=== PATIENT | male | born 1965 | race Caucasian/White ===

== ENCOUNTER 2016-08-10 19:09 | Emergency (ER) | payer OTHER ==
[~2016-08-10] VITALS: Ht 190.5 cm; Wt 120.4 kg
[~2016-08-10 19:09] MED LIST: LISI-461 PO; NXM/40 PO
[2016-08-10 19:12] VITALS: Ht 190.5 cm; Wt 120.4 kg
--- NOTE | 2016-08-10 20:19 | DIAGNOSTIC IMAGING REPORT ---
CHEST ONE VIEW PORTABLE CLINICAL HISTORY: severe hypertension chest pain COMPARISON STUDY: No previous studies for comparison. FINDINGS: The bones soft tissues and hemidiaphragms are normal. The cardiomediastinal silhouette is normal. The lungs are clear. The pulmonary vasculature is normal. IMPRESSION: Negative chest. Electronically signed by: Chas Sheriff M.D. 08/10/2016 8:16 PM Dictated Date/Time: 08/10/2016 8:16 PM
[2016-08-10] MEDS ORDERED: ATOR-22 PO (20:21)
[2016-08-10] MEDS ORDERED: LISI-725 PO (20:21)
[2016-08-10] MEDS ORDERED: PANT40TA PO (20:21)
[2016-08-10 20:46] LABS: BASO % 0.3 %; BASO ABS # 0.02 K/uL (0-0.2); COMPLETE YES; EOS % 2.6 %; HEMATOCRIT 44.4 % (42-52); IG% 0.1 %; LYMPH % 33.6 %; LYMPH ABS # 2.37 K/uL (1.2-3.4); MEAN CELL VOLUME 86.4 fL (80-100); MEAN CORPUSCULAR HEMOGLOBIN 30.4 pg (25-34); MEAN CORPUSCULAR HGB CONC 35.1 g/dl (32-36); MEAN PLATELET VOLUME 9.7 fL (7.4-10.4); NEUT % 56.4 %; PLATELET COUNT 315 K/uL (130-400); RED BLOOD COUNT 5.14 M/uL (4.7-6.1); WHITE BLOOD COUNT 7.05 K/uL (4.8-10.8)
[2016-08-10 20:54] LABS: PROTHROMBIN TIME (PATIENT) 10.8 SECONDS (9.0-12.0)
--- NOTE | 2016-08-10 21:08 | DIAGNOSTIC IMAGING REPORT ---
HEAD CT NONCONTRAST CT DOSE: 687.98 mGy.cm HISTORY: Mental status change dizziness, hypertension TECHNIQUE: Multiaxial CT images of the head were performed without the use of intravenous contrast. Comparison: None. Findings: Mild mucosal thickening inferior right maxillary sinus. Sinuses otherwise are clear. The mastoids are clear. The calvarium and skull base are intact. The ventricles and sulci are within normal limits. There is no mass, hematoma, midline shift, or acute infarct. Impression: No acute intracranial abnormality. Electronically signed by: Chas Sheriff M.D. 08/10/2016 9:06 PM Dictated Date/Time: 08/10/2016 9:05 PM
[2016-08-10 21:17] VITALS: O2SAT 95
[2016-08-10 21:17] LABS: ALKALINE PHOSPHATASE 108 U/L (45-117); ALT/SGPT 43 U/L (12-78); AST/SGOT 23 U/L (15-37); BLOOD UREA NITROGEN 13 mg/dl (7-18); BUN/CREATININE RATIO 13.4 (10-20); CARBON DIOXIDE 25 mmol/L (21-32); CHLORIDE 108 mmol/L (98-107); CREATININE 0.94 mg/dl (0.60-1.40); GLUCOSE 88 mg/dl (70-99); POTASSIUM 4.1 mmol/L (3.5-5.1); SODIUM 142 mmol/L (136-145)
[2016-08-10 23:01] VITALS: BP 148/93; PULSE 57; TEMP 36.7; O2SAT 96
--- NOTE | 2016-08-11 00:09 | EMERGENCY ROOM VISIT NOTE ---
History Report prepared by Ameya: Ayaan Monge Under the Supervision of: Dr. Angelo Rowe M.D. First contact with patient: 19:52 Chief Complaint: HYPERTENSION Stated Complaint: DIZZY, HIGH BP TINGLY LEFT ARM History of Present Illness The patient is a 51 year old male who presents to the Emergency Room with complaints of sudden hypertension beginning two and a half hours prior to arrival. He associates lightheadedness, intermittent palpitations, and resolved dizziness with today's symptoms. The patient notes he began to feel palpitations and felt like the room was spinning. He states his sister took his blood pressure, and it was high. The patient notes he has a history of hypertension and denies missing any doses of his medication. He states he has not been getting much rest over the past several weeks due to an online math course. The patient notes heart disease runs in his family. Pt denies LOC, headache, fevers, chills, diaphoresis, visual changes, neck pain, chest pain, breathing difficulties, nausea, vomiting, abdominal pain, back pain, leg pain, melena, hematochezia, urinary symptoms, numbness, weakness, lymphadenopathy, rash, or other complaints. 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 A total of ten systems were reviewed and were otherwise negative. Past Medical & Surgical Medical Problems: (1) GERD (gastroesophageal reflux disease) (2) Hypertension Surgical Problems: (1) S/P cholecystectomy Family History Cancer Heart disease Lung disease Social History Smoking Status: Never Smoker Marital Status: Occupation Status: employed Current/Historical Medications Scheduled Atorvastatin (Lipitor), 20 MG PO DAILY Lisinopril (Zestril), 20 MG PO DAILY Pantoprazole (Protonix), 40 MG PO DAILY Allergies Coded Allergies: No Known Allergies (Unverified , 12/06/09) Physical Exam Vital Signs Date Time Temp Pulse Resp B/P Pulse Ox O2 Delivery O2 Flow Rate FiO2 08/10/16 23:01 36.7 57 18 148/93 96 08/10/16 22:38 57 18 148/93 96 Room Air 08/10/16 21:21 65 08/10/16 21:17 Room Air 08/10/16 21:17 95 Room Air 08/10/16 20:33 59 18 154/102 94 Room Air 65 174/115 69 161/114 08/10/16 19:12 36.7 87 20 184/110 95 Room Air Physical Exam GENERAL: Awake, alert, well-appearing, in no distress HENT: Normocephalic, atraumatic. Oropharynx unremarkable. EYES: Normal conjunctiva. Sclera non-icteric. NECK: Supple. No nuchal rigidity. FROM. No JVD. RESPIRATORY: Clear to auscultation. CARDIAC: Regular rate, normal rhythm. Extremities warm and well perfused. Pulses equal. ABDOMEN: Soft, non-distended. No tenderness to palpation. No rebound or guarding. No masses. RECTAL: Deferred. MUSCULOSKELETAL: Chest examination reveals no tenderness. The back is symmetrical on inspection without obvious abnormality. There is no CVA tenderness to palpation. No joint edema. LOWER EXTREMITIES: Calves are equal size bilaterally and non-tender. No edema. No discoloration. NEURO: Normal sensorium. No sensory or motor deficits noted. SKIN: No rash or jaundice noted. Medical Decision & Procedures ER Provider Diagnostic Interpretation: X ray results as stated below per my interpretation and radiologist interpretation. Other radiology results as stated below per my review and radiologist interpretation CHEST ONE VIEW PORTABLE CLINICAL HISTORY: severe hypertension chest pain COMPARISON STUDY: No previous studies for comparison. FINDINGS: The bones soft tissues and hemidiaphragms are normal. The cardiomediastinal silhouette is normal. The lungs are clear. The pulmonary vasculature is normal. IMPRESSION: Negative chest. Electronically signed by: Chas Sheriff M.D. 08/10/2016 8:[address] CT DOSE: 687.98 mGy.cm HISTORY: Mental status change dizziness, hypertension TECHNIQUE: Multiaxial CT images of the head were performed without the use of intravenous contrast. Comparison: None. Findings: Mild mucosal thickening inferior right maxillary sinus. Sinuses otherwise are clear. The mastoids are clear. The calvarium and skull base are intact. The ventricles and sulci are within normal limits. There is no mass, hematoma, midline shift, or acute infarct. Impression: No acute intracranial abnormality. Electronically signed by: Chas Sheriff M.D. 08/10/2016 9:06 PM Laboratory Results 08/10/16 20:15 Red Blood Count 5.14, Mean Corpuscular Volume 86.4, Mean Corpuscular Hemoglobin 30.4, Mean Corpuscular Hemoglobin Concent 35.1, Mean Platelet Volume 9.7, Neutrophils (%) (Auto) 56.4, Lymphocytes (%) (Auto) 33.6, Monocytes (%) (Auto) 7.0, Eosinophils (%) (Auto) 2.6, Basophils (%) (Auto) 0.3, Neutrophils # (Auto) 3.98, Lymphocytes # (Auto) 2.37, Monocytes # (Auto) 0.49, Eosinophils # (Auto) 0.18, Basophils # (Auto) 0.02 08/10/16 20:15 Test 08/10/16 20:15 White Blood Count 7.05 K/uL (4.8-10.8) Red Blood Count 5.14 M/uL (4.7-6.1) Hemoglobin 15.6 g/dL (14.0-18.0) Hematocrit 44.4 % (42-52) Mean Corpuscular Volume 86.4 fL (80-100) Mean Corpuscular Hemoglobin 30.4 pg (25-34) Mean Corpuscular Hemoglobin Concent 35.1 g/dl (32-36) Platelet Count 315 K/uL (130-400) Mean Platelet Volume 9.7 fL (7.4-10.4) Neutrophils (%) (Auto) 56.4 % Lymphocytes (%) (Auto) 33.6 % Monocytes (%) (Auto) 7.0 % Eosinophils (%) (Auto) 2.6 % Basophils (%) (Auto) 0.3 % Neutrophils # (Auto) 3.98 K/uL (1.4-6.5) Lymphocytes # (Auto) 2.37 K/uL (1.2-3.4) Monocytes # (Auto) 0.49 K/uL (0.11-0.59) Eosinophils # (Auto) 0.18 K/uL (0-0.5) Basophils # (Auto) 0.02 K/uL (0-0.2) RDW Standard Deviation 43.5 fL (36.4-46.3) RDW Coefficient of Variation 13.7 % (11.5-14.5) Immature Granulocyte % (Auto) 0.1 % Immature Granulocyte # (Auto) 0.01 K/uL (0.00-0.02) Prothrombin Time 10.8 SECONDS (9.0-12.0) Prothromb Time International Ratio 1.0 (0.9-1.1) Activated Partial Thromboplast Time 24.7 SECONDS (21.0-31.0) Partial Thromboplastin Ratio 1.0 Anion Gap 9.0 mmol/L (3-11) Est Creatinine Clear Calc Drug Dose 128.5 ml/min Estimated GFR () 107.6 Estimated GFR (Non- 92.8 BUN/Creatinine Ratio 13.4 (10-20) Calcium Level 9.0 mg/dl (8.5-10.1) Total Bilirubin 0.6 mg/dl (0.2-1) Direct Bilirubin 0.2 mg/dl (0-0.2) Aspartate Amino Transf (AST/SGOT) 23 U/L (15-37) Alanine Aminotransferase (ALT/SGPT) 43 U/L (12-78) Alkaline Phosphatase 108 U/L (45-117) Total Creatine Kinase 162 U/L (39-308) Creatine Kinase MB 1.7 ng/ml (0.5-3.6) Creatine Kinase MB Ratio 1.0 (0-3.0) Troponin I < 0.015 ng/ml (0-0.045) Total Protein 7.4 gm/dl (6.4-8.2) Albumin 3.9 gm/dl (3.4-5.0) Lipase 149 U/L (73-393) Thyroid Stimulating Hormone (TSH) 3.680 uIu/ml (0.300-4.500) Laboratory results reviewed by me ECG Indication: palpitations Rate (beats per minute): 72 Rhythm: normal sinus (with sinus arrhythmia) Findings: no acute ischemic change, no ectopy ED Course 2002: The patient was evaluated in room A12A. A complete history and physical exam was performed. 2223: I reevaluated the patient. Discussed results and discharge instructions: He verbalized understanding and agreement. The patient is ready for discharge. Medical Decision Prior records/ancillary studies reviewed regarding the history above. Triage Nursing notes reviewed and agree them. Additional history obtained from the family. The patient's history was concerning for hypertension. Differential diagnosis: Etiologies such as hypertensive emergency, benign hypertension, cardiovascular pathology, pheochromocytoma, electrolyte abnormality, renal disease, endorgan damage, as well as others were entertained. Physical examination: As above. Benign. No nystagmus. No focal neurologic findings. ER treatment provided: On reassessment the patient felt better. I instructed the patient to take an extra dose of his lisinopril, 20 mg which he had with him. Diagnostic interpretation by me: The electrocardiogram was negative for pathologic change. The labs revealed an unremarkable CBC, chemistry panel, LFTs, cardiac markers, lipase, and TSH. Imaging studies: Negative CT and x-ray as above The patient states it's been sometime since he has followed up with his primary physician. He is consistently hypertensive although his systolic is coming down but his diastolic is staying up. He does not have any findings at this time that would warrant hospital admission or treatment with IV medication. I do think it is reasonable as he is only on 20 mg of lisinopril to increase this , monitor his blood pressure, and follow-up closely with his primary office. He will call the office tomorrow to set the appointment. The patient states that he has not been sleeping well and his diet is off. I believe this is not helping his blood pressure. I gave my usual and customary discussion regarding this issue. By the evaluation outlined above emergent etiologies such as hypertensive emergency, pheochromocytoma, endorgan damage, cardiac ischemia, aortic dissection, pulmonary embolism, pneumonia, pneumothorax, infections, gastrointestinal, as well as others were deemed relatively unlikely. The patient and family were informed about the findings as listed above. All questions were answered and they were pleased with the treatment. Return instructions were outlined and the patient was discharged in stable condition. Outpatient prescription management: Increase lisinopril to 40 mg daily Referral: The patient was referred back to his primary care physician for follow-up this week for a recheck of the current condition. The chart was completed utilizing [employer] Speech voice recognition software. Grammatical errors, random word insertions, pronoun errors, and incomplete sentences are an occasional consequence of this system due to software limitations, ambient noise, and hardware issues. Any formal questions or concerns about the content, text, or information contained within the body of this dictation should be directly addressed to the physician for clarification. Impression Primary Impression: Hypertension Scribe Attestation The scribe's documentation has been prepared under my direction and personally reviewed by me in its entirety. I confirm that the note above accurately reflects all work, treatment, procedures, and medical decision making performed by me. Departure Information Dispostion Home / Self-Care Referrals Tristen Montiel D.O. (PCP) Forms HOME CARE DOCUMENTATION FORM, IMPORTANT VISIT INFORMATION, WORK / SCHOOL INSTRUCTIONS Patient Instructions My [facility] Additional Instructions Increase lisinopril to 40 mg daily. Follow-up with your primary physician tomorrow as your blood pressure was significantly elevated and needs to be followed closely. You may need additional treatment besides the increase of the lisinopril. Return to the ER for worsening blood pressure problems, headache, chest pain, difficulty breathing, fevers, vomiting, worsening of your condition, or as needed.
== END 2016-08-10 23:02 | disposition home or self-care (01) ==
LOC: C.EDB 19:11 → C.EDA 23:02
DX: I10 Essential (primary) hypertension (principal); R00.2 Palpitations; K21.9 Gastro-esophageal reflux disease without esophagitis; Z90.49 Acquired absence of other specified parts of digestive tract; Z79.899 Other long term (current) drug therapy; Z80.9 Family history of malignant neoplasm, unspecified; Z82.49 Family history of ischemic heart disease and other diseases of the circulatory system

== ENCOUNTER 2021-12-30 16:17 | Inpatient (IN) ==
--- NOTE | 2021-12-30 16:36 | Emergency Department Note ---
History of Present Illness General Chief complaint: Leg Injury/Pain Stated complaint: LEFT LEG PAIN AND TENDER TO TOUCH AND REDNESS Time Seen by Provider: 12/30/21 16:27 History of Present Illness Maximum Pain Intensity: 8 This is a 56-year-old male that presents to the emergency department via private vehicle with complaints of "right leg pain and swelling, redness, tender to the touch". The patient notes that last Wednesday, just under a week ago he flew to [place]. He was moving his son into his freshman year of college. He states that while there he had some nausea and vomiting but that seemed to subside. He then notes that on the plane flight back this past Wednesday he noted some redness, swelling and pain to the right calf area. He has never had this before. This is new. No history of DVT/PE. Then today he developed some left-sided chest discomfort. No dyspnea. He notes it is very minor in nature. No shortness of breath. No fevers. Patient has history of hypertension and acid reflux. He notes he is on hydrochlorothiazide, amlodipine, lisinopril. He notes he also takes pantoprazole. Patient denies any trauma or injury to the area. Home Medications Medication Instructions Recorded Confirmed Type amlodipine 5 mg tablet 5 mg PO DAILY 12/30/21 12/30/21 History atorvastatin 20 mg tablet 20 mg PO HS 12/30/21 12/30/21 History hydrochlorothiazide 12.5 mg capsule 12.5 mg PO DAILY 12/30/21 12/30/21 History pantoprazole 40 mg tablet,delayed 40 mg PO DAILY 12/30/21 12/30/21 History release Allergies Allergy/AdvReac Type Severity Reaction Status Date / Time No Known Allergies Allergy Unverified 12/06/09 02:50 Past Med/Surg History Medical History (Updated 12/30/21 @ 20:49 by Jae Lainez PA-C) Abnormal liver function tests Calculus of kidney Dyslipidemia GERD (gastroesophageal reflux disease) Hypertension Stasis dermatitis of both legs Surgical History (Updated 12/30/21 @ 20:17 by Apple Penaloza PA-C) H/O hernia repair Hx of cholecystectomy Family History Other Cancer Heart disease Social History (Updated 12/30/21 @ 20:18 by Apple Penaloza PA-C) Smoking Status: Never smoker Hx Alcohol Use: No Hx Substance Use: No Preferred Language: Salvadorean Feels Safe at Home: Yes Review of Systems A total of 10 systems reviewed and were otherwise negative Physical Exam Vital Signs Vital Signs - 24 hr 12/30/21 16:18 12/30/21 17:00 12/30/21 17:00 Temperature 36.9 C Temperature Source Temporal Artery Scan Pulse Rate 83 Pulse Rate [Right Finger] 71 Pulse Rhythm [Right Finger] Regular Pulse Strength [Right Finger] Normal Respiratory Rate 16 18 Respiratory Effort / Characteristics Non-Labored Spontaneous Non-Labored Respiratory Depth Normal Normal Respiratory Pattern Regular Blood Pressure 109/69 Blood Pressure [Right Arm] 115/72 Blood Pressure Mean 82 Blood Pressure Mean [Right Arm] 86 Pulse Oximetry 96 93 Oxygen Delivery Method Room Air Room Air Room Air Sepsis Recent Fever Within 48 Hours No Sepsis New/Unexplained Change in Mental Status N/A Sepsis Action Taken by Nursing No Action Required 12/30/21 19:00 Temperature Temperature Source Pulse Rate Pulse Rate [Right Finger] 80 Pulse Rhythm [Right Finger] Pulse Strength [Right Finger] Normal Respiratory Rate 23 Respiratory Effort / Characteristics Non-Labored Respiratory Depth Normal Respiratory Pattern Regular Blood Pressure Blood Pressure [Right Arm] 125/74 Blood Pressure Mean Blood Pressure Mean [Right Arm] 91 Pulse Oximetry 97 Oxygen Delivery Method Room Air Sepsis Recent Fever Within 48 Hours Sepsis New/Unexplained Change in Mental Status Sepsis Action Taken by Nursing VITAL SIGNS - Vital signs and nursing notes were reviewed. Stable and afebrile. GENERAL - 56-year-old male appearing his stated age who is in no acute distress. Communicates well with provider and answers questions appropriately. SKIN -right lower extremity just distal to the right knee is circumferentially edematous, erythematous, with a darkened red hue. HEAD - NC/AT. EYES - Sclera anicteric. EARS - No deformities of external structures noted on gross examination bilaterally. NOSE - Midline and without cyanosis. No epistaxis or purulent drainage noted. MOUTH/OROPHARYNX - Without perioral cyanosis. NECK - Neck with FROM. No nuchal rigidity. LUNGS - Chest wall symmetric without accessory muscle use, intercostals retractions, or central cyanosis. Normal vesicular breath sounds CTA B/L. No wheezes, rales, or rhonchi appreciated. CARDIAC - RRR with S1/S2. No murmur, rubs, or gallops appreciated. ABDOMEN - Abdominal contour normal without pulsations or visible masses. BS normoactive all four quadrants. No tenderness, palpable masses, hepatosplenomegaly, or ascites noted. EXTREMITIES - +5/5 strength noted in UE/LE bilaterally. Left lower extremity normal. Right lower extremity circumferentially edematous and erythematous. This starts just distal to the right knee and extends to the right ankle. Mild erythema to the right foot. Dorsalis pedis pulse intact. NEUROLOGIC - Cranial nerves II through XII grossly intact. PSYCH - A&O, and cooperates fully with examiner. Pt is very pleasant and interacts well with examiner. Medical Decision Making Laboratory Data Result diagrams: 12/30/21 17:10 12/30/21 17:10 Lab Results 12/30/21 12/30/21 12/30/21 Range/Units 17:10 17:10 17:10 WBC 11.99 H (4.8-10.8) K/ul RBC 5.29 (4.63-6.08) M/uL Hgb 16.0 (14.0-18.0) g/dl Hct 46.2 (40.1-51.0) % MCV 87.3 (80.0-100.0) fL MCH 30.2 (25.0-34.0) pg MCHC 34.6 (32.0-36.0) g/dL RDW Std Deviation 47.4 H (36.4-46.3) fL RDW Coeff of Julio Cesar 14.8 H (11.5-14.5) % Plt Count 249 (130-400) K/uL MPV 9.7 (9.4-12.4) fL Immature Gran % (Auto) 0.7 % Neut % (Auto) 85.2 % Lymph % (Auto) 7.3 % [place] % (Auto) 6.4 % Eos % (Auto) 0.1 % Baso % (Auto) 0.3 % Neut # (Auto) 10.22 H (1.4-6.5) K/uL Lymph # (Auto) 0.88 L (1.2-3.4) K/uL [place] # (Auto) 0.77 (0.24-0.82) K/uL Eos # (Auto) 0.01 (0-0.50) K/uL Baso # (Auto) 0.03 (0-0.2) K/uL Immature Gran # (Auto) 0.08 H (0.00-0.02) K/uL ESR (0-20) mm/hr PT 10.9 (9.0-12.0) Seconds INR 1.0 (0.9-1.1) APTT 24.1 (21.0-31.0) Seconds PTT Ratio 0.9 Sodium 131 L (136-145) mmol/L Potassium 3.7 (3.5-5.1) mmol/L Chloride 99 (98-107) mmol/L Carbon Dioxide 22 (21-32) mmol/L Anion Gap 10 (3-11) BUN 39 H (6-23) mg/dl Creatinine 2.51 H (0.6-1.4) mg/dl Est Cr Clr Drug Dosing 46.0 ml/min Est GFR ( Amer) 31.7 ml/min Est GFR (Non-Af Amer) 27.3 ml/min BUN/Creatinine Ratio 15.5 (10-20) Glucose 99 (70-99(Fasting)) mg/dl Lactate (0.4-2.0) mmol/L Calcium 9.3 (8.5-10.1) mg/dl Total Bilirubin 2.2 H (0.2-1.0) mg/dl AST 28 (13-39) U/L ALT 33 (7-52) U/L Alkaline Phosphatase 83 (34-104) U/L Troponin I High Sens 8.4 (0-20) pg/ml C-Reactive Protein (0-0.5) mg/dl B-Natriuretic Peptide (0-100) pg/ml Total Protein 7.6 (6.0-8.3) gm/dl Albumin 3.9 (3.4-5.0) gm/dl Globulin 3.7 (2.5-4.0) gm/dl Albumin/Globulin Ratio 1.1 (0.9-2) Procalcitonin (0-0.5) ng/ml TSH (0.300-4.500) uIu/ml Lyme Disease IgG Ab (Negative) Lyme Disease IgM Ab (Negative) SARS-CoV-2, RNA, NAAT (NEGATIVE) 08/30/22 08/30/22 08/30/22 Range/Units 17:10 17:10 19:30 WBC (4.8-10.8) K/ul RBC (4.63-6.08) M/uL Hgb (14.0-18.0) g/dl Hct (40.1-51.0) % MCV (80.0-100.0) fL MCH (25.0-34.0) pg MCHC (32.0-36.0) g/dL RDW Std Deviation (36.4-46.3) fL RDW Coeff of Julio Cesar (11.5-14.5) % Plt Count (130-400) K/uL MPV (9.4-12.4) fL Immature Gran % (Auto) % Neut % (Auto) % Lymph % (Auto) % [place] % (Auto) % Eos % (Auto) % Baso % (Auto) % Neut # (Auto) (1.4-6.5) K/uL Lymph # (Auto) (1.2-3.4) K/uL [place] # (Auto) (0.24-0.82) K/uL Eos # (Auto) (0-0.50) K/uL Baso # (Auto) (0-0.2) K/uL Immature Gran # (Auto) (0.00-0.02) K/uL ESR (0-20) mm/hr PT (9.0-12.0) Seconds INR (0.9-1.1) APTT (21.0-31.0) Seconds PTT Ratio Sodium (136-145) mmol/L Potassium (3.5-5.1) mmol/L Chloride (98-107) mmol/L Carbon Dioxide (21-32) mmol/L Anion Gap (3-11) BUN (6-23) mg/dl Creatinine (0.6-1.4) mg/dl Est Cr Clr Drug Dosing ml/min Est GFR ( Amer) ml/min Est GFR (Non-Af Amer) ml/min BUN/Creatinine Ratio (10-20) Glucose (70-99(Fasting)) mg/dl Lactate (0.4-2.0) mmol/L Calcium (8.5-10.1) mg/dl Total Bilirubin (0.2-1.0) mg/dl AST (13-39) U/L ALT (7-52) U/L Alkaline Phosphatase (34-104) U/L Troponin I High Sens (0-20) pg/ml C-Reactive Protein 9.61 H (0-0.5) mg/dl B-Natriuretic Peptide 42 (0-100) pg/ml Total Protein (6.0-8.3) gm/dl Albumin (3.4-5.0) gm/dl Globulin (2.5-4.0) gm/dl Albumin/Globulin Ratio (0.9-2) Procalcitonin (0-0.5) ng/ml TSH 4.112 (0.300-4.500) uIu/ml Lyme Disease IgG Ab (Negative) Lyme Disease IgM Ab (Negative) SARS-CoV-2, RNA, NAAT (NEGATIVE) 12/30/21 12/30/21 12/30/21 Range/Units 19:30 19:30 19:30 WBC (4.8-10.8) K/ul RBC (4.63-6.08) M/uL Hgb (14.0-18.0) g/dl Hct (40.1-51.0) % MCV (80.0-100.0) fL MCH (25.0-34.0) pg MCHC (32.0-36.0) g/dL RDW Std Deviation (36.4-46.3) fL RDW Coeff of Julio Cesar (11.5-14.5) % Plt Count (130-400) K/uL MPV (9.4-12.4) fL Immature Gran % (Auto) % Neut % (Auto) % Lymph % (Auto) % [place] % (Auto) % Eos % (Auto) % Baso % (Auto) % Neut # (Auto) (1.4-6.5) K/uL Lymph # (Auto) (1.2-3.4) K/uL [place] # (Auto) (0.24-0.82) K/uL Eos # (Auto) (0-0.50) K/uL Baso # (Auto) (0-0.2) K/uL Immature Gran # (Auto) (0.00-0.02) K/uL ESR 36 H (0-20) mm/hr PT (9.0-12.0) Seconds INR (0.9-1.1) APTT (21.0-31.0) Seconds PTT Ratio Sodium (136-145) mmol/L Potassium (3.5-5.1) mmol/L Chloride (98-107) mmol/L Carbon Dioxide (21-32) mmol/L Anion Gap (3-11) BUN (6-23) mg/dl Creatinine (0.6-1.4) mg/dl Est Cr Clr Drug Dosing ml/min Est GFR ( Amer) ml/min Est GFR (Non-Af Amer) ml/min BUN/Creatinine Ratio (10-20) Glucose (70-99(Fasting)) mg/dl Lactate 0.9 (0.4-2.0) mmol/L Calcium (8.5-10.1) mg/dl Total Bilirubin (0.2-1.0) mg/dl AST (13-39) U/L ALT (7-52) U/L Alkaline Phosphatase (34-104) U/L Troponin I High Sens (0-20) pg/ml C-Reactive Protein (0-0.5) mg/dl B-Natriuretic Peptide (0-100) pg/ml Total Protein (6.0-8.3) gm/dl Albumin (3.4-5.0) gm/dl Globulin (2.5-4.0) gm/dl Albumin/Globulin Ratio (0.9-2) Procalcitonin 5.58 H (0-0.5) ng/ml TSH (0.300-4.500) uIu/ml Lyme Disease IgG Ab Negative (Negative) Lyme Disease IgM Ab Negative (Negative) SARS-CoV-2, RNA, NAAT (NEGATIVE) 12/30/21 Range/Units Unknown WBC (4.8-10.8) K/ul RBC (4.63-6.08) M/uL Hgb (14.0-18.0) g/dl Hct (40.1-51.0) % MCV (80.0-100.0) fL MCH (25.0-34.0) pg MCHC (32.0-36.0) g/dL RDW Std Deviation (36.4-46.3) fL RDW Coeff of Julio Cesar (11.5-14.5) % Plt Count (130-400) K/uL MPV (9.4-12.4) fL Immature Gran % (Auto) % Neut % (Auto) % Lymph % (Auto) % [place] % (Auto) % Eos % (Auto) % Baso % (Auto) % Neut # (Auto) (1.4-6.5) K/uL Lymph # (Auto) (1.2-3.4) K/uL [place] # (Auto) (0.24-0.82) K/uL Eos # (Auto) (0-0.50) K/uL Baso # (Auto) (0-0.2) K/uL Immature Gran # (Auto) (0.00-0.02) K/uL ESR (0-20) mm/hr PT (9.0-12.0) Seconds INR (0.9-1.1) APTT (21.0-31.0) Seconds PTT Ratio Sodium (136-145) mmol/L Potassium (3.5-5.1) mmol/L Chloride (98-107) mmol/L Carbon Dioxide (21-32) mmol/L Anion Gap (3-11) BUN (6-23) mg/dl Creatinine (0.6-1.4) mg/dl Est Cr Clr Drug Dosing ml/min Est GFR ( Amer) ml/min Est GFR (Non-Af Amer) ml/min BUN/Creatinine Ratio (10-20) Glucose (70-99(Fasting)) mg/dl Lactate (0.4-2.0) mmol/L Calcium (8.5-10.1) mg/dl Total Bilirubin (0.2-1.0) mg/dl AST (13-39) U/L ALT (7-52) U/L Alkaline Phosphatase (34-104) U/L Troponin I High Sens (0-20) pg/ml C-Reactive Protein (0-0.5) mg/dl B-Natriuretic Peptide (0-100) pg/ml Total Protein (6.0-8.3) gm/dl Albumin (3.4-5.0) gm/dl Globulin (2.5-4.0) gm/dl Albumin/Globulin Ratio (0.9-2) Procalcitonin (0-0.5) ng/ml TSH (0.300-4.500) uIu/ml Lyme Disease IgG Ab (Negative) Lyme Disease IgM Ab (Negative) SARS-CoV-2, RNA, NAAT NEGATIVE (NEGATIVE) Imaging Data Radiologist's Impression: Venous Doppler Study 12/30/21 16:34 ULTRASOUND RIGHT LOWER EXTREMITY VENOUS CLINICAL HISTORY: Right calf pain. Erythema and swelling. COMPARISON STUDY: No priors. TECHNIQUE: Real-time, grayscale, and color Doppler sonography of the deep veins of the right lower extremity was performed from the inguinal crease to the calf. Compression and augmentation were utilized. FINDINGS: There is no sonographic evidence of deep venous thrombosis identified in the right lower extremity. The common femoral, superficial femoral, and popliteal veins are patent and normally compressible. The greater saphenous vein and the profunda femoris vein at the junction with the common femoral vein are clear. The visualized calf veins are patent. Benign-appearing right inguinal lymph nodes are incidentally noted and may be reactive. These show near complete fatty replacement with minimal thin cortex. IMPRESSION: There is no sonographic evidence of deep venous thrombosis identified in the right lower extremity. ACT 112: Negative or not required by law. Electronically signed by: Sony Chance M.D. 12/30/2021 6:26 PM Chest X-Ray 12/30/21 17:52 SINGLE VIEW CHEST CLINICAL HISTORY: Atypical chest pain. FINDINGS: An AP, portable, upright chest radiograph is compared to study dated 08/10/2016. The heart is enlarged noting atherosclerotic calcification of the thoracic aorta. The pulmonary vasculature is noncongested. Chronic interstitial thickening is similar to previous. There is bibasilar scarring/atelectasis. The lungs and pleural spaces are otherwise clear. No pneumothorax is seen. The skeletal structures are osteopenic. The bony thorax is grossly intact. IMPRESSION: Cardiomegaly with no acute cardiopulmonary abnormality identified. ACT 112: Negative or not required by law. Electronically signed by: Sony Chance M.D. 12/30/2021 6:31 PM [facility] Narrative Patient was seen and evaluated as above in room D06. Review was performed of nursing notes and vital signs. I did review pertinent previous visits and patient history. After obtaining a thorough history and physical examination the above work up was performed. Patient presents to us today for assessment of right leg discomfort predominantly overlying the right calf. There is erythema and edema beginning just distal to the right knee extending to the right ankle. This is asymmetric compared to the left. This has never happened before. He did have a recent plane flight to [place] and then back. He does note some minor left-sided chest pain which started today. Options of care were discussed with the patient. IV access was established. Labs were drawn. I initially had ordered a CTA of his chest plus right lower leg Doppler study however his creat resulted with what appears to be an YAYA of 2.51 with BUN of 39 which is new compared to previous at least previous value in our system here today. He has mild leukocytosis 11.99. No anemia. Mild hyponatremia 131. T bili 2.2. Troponin negative. TSH normal. COVID testing negative. CTA canceled and a chest x-ray was added. His EKG is not consistent with that of [facility]. This reveals a normal sinus rhythm at a rate of 83 bpm. QTc 444. QRS 112. Presentation could be secondary to that of DVT versus cellulitis among others. Case discussed with the hospitalist service pending further work-up. Please refer to further documentation regarding his stay. Vital signs stable. He is afebrile. No evidence of sepsis. I will defer medicinal therapy to the hospitalist service as they will evaluate the patient first. Patient happy with plan of care. Case was discussed with the attending physician. In the evaluation and treatment of this patient the following differential diagnoses were entertained: DVT, cerulea dolens, cellulitis, ischemic limb, venous stasis, among others. Impression & Plan Cellulitis of right lower extremity, Acute renal failure, Nausea and vomiting Discharge Plan Visit Data Chief Complaint: Leg Injury/Pain Stated Complaint: LEFT LEG PAIN AND TENDER TO TOUCH AND REDNESS ED Provider: Rick Downey ED Midlevel Provider: Jae Lainez Discharge Problem: Cellulitis of right lower extremity, Acute renal failure, Nausea and vomiting Patient Disposition: Admitted As Inpatient Condition: Good Forms Stand Alone Forms: [facility], Virtual Emergency Department, Important Visit Information Prescriptions Prescriptions: No Action atorvastatin 20 mg tablet 20 mg PO HS amlodipine 5 mg tablet 5 mg PO DAILY pantoprazole 40 mg tablet,delayed release (DR/EC) 40 mg PO DAILY hydrochlorothiazide 12.5 mg capsule 12.5 mg PO DAILY Referrals Referrals: Tristen Montiel DO [Outside Practitioners] -
[2021-12-30 17:25] LABS: Basophils # (auto) 0.03 K/uL (0-0.2); Basophils % (auto) 0.3 %; Eosinophils # (auto) 0.01 K/uL (0-0.50); Eosinophils % (auto) 0.1 %; Hematocrit (blood only) 46.2 % (40.1-51.0); Immature Granulocytes # (auto) 0.08 K/uL (0.00-0.02); Immature Granulocytes % (auto) 0.7 %; Lymphocytes # (auto) 0.88 K/uL (1.2-3.4); Lymphocytes % (auto) 7.3 %; Mean Corpuscular Hemoglobin 30.2 pg (25.0-34.0); Mean Corpuscular Hgb Conc 34.6 g/dL (32.0-36.0); Mean Corpuscular Volume 87.3 fL (80.0-100.0); Mean Platelet Volume 9.7 fL (9.4-12.4); Monocytes # (auto) 0.77 K/uL (0.24-0.82); Monocytes % (auto) 6.4 %; Neutrophils # (auto) 10.22 K/uL (1.4-6.5); Neutrophils % (auto) 85.2 %; Platelet Count 249 K/uL (130-400); RDW Coefficient of Variation 14.8 % (11.5-14.5); RDW Standard Deviation 47.4 fL (36.4-46.3); Red Blood Count 5.29 M/uL (4.63-6.08); White Blood Count 11.99 K/ul (4.8-10.8)
[2021-12-30 17:38] LABS: Partial Thromboplastin Ratio 0.9; Partial Thromboplastin Time 24.1 Seconds (21.0-31.0); Prothrombin Time 10.9 Seconds (9.0-12.0)
[2021-12-30 17:46] LABS: Albumin Globulin Ratio 1.1 (0.9-2); Albumin Level 3.9 gm/dl (3.4-5.0); BUN Creatinine Ratio 15.5 (10-20); Bilirubin,Total 2.2 mg/dl (0.2-1.0); Calcium 9.3 mg/dl (8.5-10.1); Est GFR (African American) 31.7 ml/min; Est GFR (Non-African American) 27.3 ml/min; Globulin 3.7 gm/dl (2.5-4.0); Potassium 3.7 mmol/L (3.5-5.1); Total Protein 7.6 gm/dl (6.0-8.3)
[2021-12-30 17:50] LABS: Troponin I High Sensitivity 8.4 pg/ml (0-20)
--- NOTE | 2021-12-30 18:28 | Ultrasound Report ---
ULTRASOUND RIGHT LOWER EXTREMITY VENOUS CLINICAL HISTORY: Right calf pain. Erythema and swelling. COMPARISON STUDY: No priors. TECHNIQUE: Real-time, grayscale, and color Doppler sonography of the deep veins of the right lower ex tremity was performed from the inguinal crease to the calf. Compression and augmentation were utilize d. FINDINGS: There is no sonographic evidence of deep venous thrombosis identified in the right lower ex tremity. The common femoral, superficial femoral, and popliteal veins are patent and normally romana sible. The greater saphenous vein and the profunda femoris vein at the junction with the common femor al vein are clear. The visualized calf veins are patent. Benign-appearing right inguinal lymph nodes are incidentally noted and may be reactive. These show near complete fatty replacement with minimal t hin cortex. IMPRESSION: There is no sonographic evidence of deep venous thrombosis identified in the right lower extremity. ACT 112: Negative or not required by law. Electronically signed by: Sony Chance M.D. 12/30/2021 6:26 PM
--- NOTE | 2021-12-30 18:33 | XRay Report ---
SINGLE VIEW CHEST CLINICAL HISTORY: Atypical chest pain. FINDINGS: An AP, portable, upright chest radiograph is compared to study dated 08/10/2016. The heart i s enlarged noting atherosclerotic calcification of the thoracic aorta. The pulmonary vasculature is n oncongested. Chronic interstitial thickening is similar to previous. There is bibasilar scarring/atel ectasis. The lungs and pleural spaces are otherwise clear. No pneumothorax is seen. The skeletal stru ctures are osteopenic. The bony thorax is grossly intact. IMPRESSION: Cardiomegaly with no acute cardiopulmonary abnormality identified. ACT 112: Negative or not required by law. Electronically signed by: Sony Chance M.D. 12/30/2021 6:31 PM
--- NOTE | 2021-12-30 19:15 | History & Physical Report ---
Date of Service December 30, 2021 Assessment & Plan (1) Cellulitis of right lower extremity: (2) Acute renal failure: (3) Nausea and vomiting: (4) Hypertension: (5) Dyslipidemia: (6) GERD (gastroesophageal reflux disease): Plan This is a 56-year-old male with PMH of hypertension, stasis dermatitis, fatty liver and other medical problems listed below who presents with pain and rash of right lower extremity over the past few days. RLE cellulitis RLE with erythema and petechiae, warm to touch with erythematous streaking extending up to R groin History of lichenoid LL Eruption/Favor Stasis Dermatitis, follows with derm Pain, erythema and edema noted by patient 2 days ago Afebrile, vital signs stable, non-toxic appearance. WBC 12K, ESR 36, CRP 9.61. Covid PCR negative. Pending labs - lactate, procal, lyme and anaplasma serology Venous doppler negative for DVT Obtaining arterial doppler of RLE, CT R lower extremity to evaluate for soft tissue swelling, gas formation Appearance of cellulitis with streaking up R thigh and abdomen. Watch closely Started on IV Dapto and Rocephin. Follow blood culture ? Vasculitis component as well. Monitor for improvement on abx, consider addition of steroids if not improving Acute renal failure Cr 2.51 (baseline ~1) In setting of infection, concern for vasculitis picture given rash and renal impairment - ANCA pending UA, urine studies pending Continue fluid in ED, trend BMP Hold lisinopril, hctz Consider nephrology consult in no improvement Nausea and vomiting Sudden onset 2 days ago, has resolved except for intermittent nausea Tbili 2.2. Electrolytes wnl CT abd/pelvis wo con pending Trend CMP (base some HTN Normotensive. Holding lisinopril and hctz 2/2 YAYA. Reasses BP in AM to resume amlodipine HLD Holding statin while receiving IV Dapto GERD Continue PPI DVT Ppx: SQ heparin Code status: FULL PCP: Ryan Dispo: Admitted to PCU Patient seen in collaboration with Dr. Davis. Please see addendum. History of Present Illness Primary Care Provider: Angelo Gomes PA-C This is a 56-year-old male with PMH of hypertension, stasis dermatitis, fatty liver and other medical problems listed below who presents with pain and rash of right lower extremity over the past few days. Patient flew to [place] last Wednesday to take son to college and flew back 2 days ago. In the airport coming back, patient developed nausea and vomiting x 3 episodes that resolved by the following day. Associated R sided abdominal pain that has since resolved. Still feels nauseated but improved. On flight home, patient developed pain in RLE kizzy cribed as sharp like pins and needles that is worse when bearing weight. Is able to ambulate with some pain. First noticed redness and swelling yesterday. Pain continues as well. Denies any recent URI or cold symptoms in the past month. Denies fever or chills. No headache, congestion, chest pain, SOB, dysuria, diarrhea or constipation. No recent insect bites or ticks that he is aware of. Did not do any hiking out in [place]. At PCP appointment 2 weeks ago discussed lower extremity dermatitis that is itchy and ongoing. 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 Previously prescribed topical steroids and has not been using them recently. No recent antibiotics or new medications. Allergies Allergy/AdvReac Type Severity Reaction Status Date / Time No Known Allergies Allergy Unverified 12/06/09 02:50 Home Medications Medication Instructions Recorded Confirmed Type amlodipine 5 mg tablet 5 mg PO DAILY 12/30/21 12/30/21 History atorvastatin 20 mg tablet 20 mg PO HS 12/30/21 12/30/21 History hydrochlorothiazide 12.5 mg capsule 12.5 mg PO DAILY 12/30/21 12/30/21 History pantoprazole 40 mg tablet,delayed 40 mg PO DAILY 12/30/21 12/30/21 History release Past Med/Surg History Medical History (Updated 12/30/21 @ 20:49 by Jae Lainez PA-C) Abnormal liver function tests Calculus of kidney Dyslipidemia GERD (gastroesophageal reflux disease) Hypertension Stasis dermatitis of both legs Surgical History (Updated 12/30/21 @ 20:17 by Apple Penaloza PA-C) H/O hernia repair Hx of cholecystectomy Family History Other Cancer Heart disease Social History (Updated 12/30/21 @ 20:18 by Apple Penaloza PA-C) Smoking Status: Never smoker Hx Alcohol Use: No Hx Substance Use: No Preferred Language: Norwegian Feels Safe at Home: Yes Review of Systems Review of Systems: At least ten systems reviewed and negative except as noted in the HPI. Physical Exam Physical Exam: Please see Dr. Davis's addendum for physical exam. Results & Data Results & Data ([facility]) Vital Signs (Past 12 Hours) Vital Signs Temp Pulse Pulse Resp BP BP Pulse Ox 12/30/21 17:00 12/30/21 17:00 71 18 115/72 93 12/30/21 16:18 36.9 C 83 16 109/69 96 O2 Del Method 12/30/21 17:00 Room Air 12/30/21 17:00 Room Air 12/30/21 16:18 Room Air Laboratory Results Short CBC 12/30/21 Range/Units 17:10 WBC 11.99 H (4.8-10.8) K/ul Hgb 16.0 (14.0-18.0) g/dl Hct 46.2 (40.1-51.0) % Plt Count 249 (130-400) K/uL BMP 12/30/21 17:10 Sodium 131 L Potassium 3.7 Chloride 99 Carbon Dioxide 22 BUN 39 H Creatinine 2.51 H Glucose 99 Calcium 9.3 Liver Function 12/30/21 Range/Units 17:10 Total Bilirubin 2.2 H (0.2-1.0) mg/dl AST 28 (13-39) U/L ALT 33 (7-52) U/L Alkaline Phosphatase 83 (34-104) U/L Albumin 3.9 (3.4-5.0) gm/dl Diagnostic Findings Venous Doppler Study 12/30/21 16:34 ULTRASOUND RIGHT LOWER EXTREMITY VENOUS CLINICAL HISTORY: Right calf pain. Erythema and swelling. COMPARISON STUDY: No priors. TECHNIQUE: Real-time, grayscale, and color Doppler sonography of the deep veins of the right lower extremity was performed from the inguinal crease to the calf. Compression and augmentation were utilized. FINDINGS: There is no sonographic evidence of deep venous thrombosis identified in the right lower extremity. The common femoral, superficial femoral, and popliteal veins are patent and normally compressible. The greater saphenous vein and the profunda femoris vein at the junction with the common femoral vein are clear. The visualized calf veins are patent. Benign-appearing right inguinal lymph nodes are incidentally noted and may be reactive. These show near complete fatty replacement with minimal thin cortex. IMPRESSION: There is no sonographic evidence of deep venous thrombosis identified in the right lower extremity. ACT 112: Negative or not required by law. Electronically signed by: Sony Chance M.D. 12/30/2021 6:26 PM Chest X-Ray 12/30/21 17:52 SINGLE VIEW CHEST CLINICAL HISTORY: Atypical chest pain. FINDINGS: An AP, portable, upright chest radiograph is compared to study dated 08/10/2016. The heart is enlarged noting atherosclerotic calcification of the thoracic aorta. The pulmonary vasculature is noncongested. Chronic interstitial thickening is similar to previous. There is bibasilar scarring/atelectasis. The lungs and pleural spaces are otherwise clear. No pneumothorax is seen. The skeletal structures are osteopenic. The bony thorax is grossly intact. IMPRESSION: Cardiomegaly with no acute cardiopulmonary abnormality identified. ACT 112: Negative or not required by law. Electronically signed by: Sony Chance M.D. 12/30/2021 6:31 PM Supervising Physician Co-Signing Physician Notes Pt is a 56 y/o M with hx of HTN, HLD, GERD, hx of nephrolithiasis, Hepatic steatosis admitted for severe YAYA and R leg swelling and erythema PE: NAD, obese pt HEENT: normal oral exam, no ulcer Lungs: CTA, no crackles or wheezing Cardiac: Normal S1/S2, no murmur Abd: obese abd, NT, soft MSK: R LE: diffuse petechiae with non-blanching erythema (circumferential), with severe TTP, superficial erythema on the medial thigh. Good dorsalis pedis and posterior tibial pulse -Trace pitting edema of the L LE Psych: AAOx3, normal affect A/P: R leg swelling/erythema/Pain: -R LE Doppler: neg -symptoms could be 2/2 cellulitis +/- vasculitis - normal PLT level - will do dapto + ceftriaxone -will obtain ESR, CRP, and lyme titer ---monitor the improvement of thigh streaking as response to abx -might need PO steroid for possible vasculitis -will obtain arterial Doppler and CT leg YAYA: -likely 2/2 infection + pt had episode of N/V 2 days ago (dehydration) -Lungs CTA: will do 1.5L NS bolus - trend BMP -T bili is elevated (pt had hx of cholecystectomy + hepatic steatosis) --- will obtain CT abd HTN: -BP wnl -will hold his home HTN meds for now Agree with A/P by Apple Penaloza PA-C
[2021-12-30] MEDS ORDERED: SODIUM CHLORIDE 0.9% 1000ML 1,000 ML IV SCH (20:15)
[2021-12-30 20:40] LABS: Procalcitonin 5.58 ng/ml (0-0.5)
[2021-12-30 20:46] LABS: Lyme Ab IgG w/WB Rflx Negative (Negative); Lyme Ab IgM w/WB Rflx Negative (Negative)
[2021-12-30] MEDS ORDERED: SODIUM CHLORIDE 0.9% 1000ML 500 ML IV ONE (20:48)
[2021-12-30] MEDS: cefTRIAXone SODIUM 2,000 MG in DEXTROSE 5% 50 ML IV SCH (21:04)
[2021-12-30] MEDS: DAPTOmycin 400 MG in SYRINGE 0 ML IV SCH (21:04)
--- NOTE | 2021-12-30 21:14 | Ultrasound Report ---
ULTRASOUND RIGHT LOWER EXTREMITY ARTERIAL CLINICAL HISTORY: Right leg pain. COMPARISON STUDY: No priors. TECHNIQUE: Real-time grayscale and color Doppler sonography of the arteries of the right lower extrem ity is performed from the inguinal crease to the foot. The patient could not tolerate compressions to evaluate ankle brachial indices. FINDINGS: No significant atherosclerotic plaque is seen throughout the arteries of the right lower ex tremity. There are triphasic waveforms in the common femoral artery with velocities measuring up to 8 9 cm/s. The profunda femoris artery is patent with velocities measuring up to 68 cm/s. There are trip hasic waveforms throughout the superficial femoral and popliteal arteries. Velocities in the superfic ial femoral artery measure up to 110 cm/s, and velocities in the popliteal artery measure up to 82 cm /s. There is three-vessel runoff to the foot. Velocities within the calf arteries measure up to 88 cm /s. Normal arterial waveforms are shown in the calf arteries. The dorsalis pedis artery is patent wit h velocities measuring up to 61 cm/s. IMPRESSION: 1. There is no sonographic evidence of high-grade stenosis or focal vessel cutoff throughout the jabari landon of the right lower extremity. 2. Ankle brachial indices could not be assessed. Dictated: 12/30/2021 8:41 PM Transcribed: 12/30/2021 8:48 PM Sa[facility] [id number] [facility] Electronically signed by: Sony Chance M.D. 12/30/2021 9:13 PM
[2021-12-30] MEDS ORDERED: POLYETHYLENE (MIRALAX) 17 GM PACK PO PRN (21:37)
[2021-12-30] MEDS ORDERED: ONDANSETRON INJ 2 MG/ML 2 ML VIAL IV PRN (21:37)
[2021-12-30] MEDS ORDERED: ACETAMINOPHEN 325 MG TAB PO PRN (21:37)
[2021-12-30] MEDS: HEPARIN SOD 5,000 UNIT/0.5 ML VIAL SQ SCH (23:19)
[2021-12-30] MEDS ORDERED: HYDROmorphone INJ 0.5 MG/0.5 ML SYR IV PRN (23:32)
[2021-12-30] MEDS ORDERED: oxyCODONE HCL IR 5 MG TAB (IMMEDIATE RELEASE) PO PRN (23:32)
[2021-12-30] MEDS ORDERED: PROMETHAZINE HCL 12.5 MG in SODIUM CHLORIDE 0.9% 50 ML IV PRN (23:32)
[2021-12-31] MEDS: HEPARIN SOD 5,000 UNIT/0.5 ML VIAL SQ SCH ×3 (05:48→22:06)
[2021-12-31 06:19] LABS: Hematocrit (blood only) 40.5 % (40.1-51.0); Hemoglobin 13.9 g/dl (14.0-18.0); Mean Corpuscular Hemoglobin 30.2 pg (25.0-34.0); Mean Corpuscular Hgb Conc 34.3 g/dL (32.0-36.0); Mean Corpuscular Volume 87.9 fL (80.0-100.0); Mean Platelet Volume 9.9 fL (9.4-12.4); Platelet Count 223 K/uL (130-400); RDW Coefficient of Variation 14.9 % (11.5-14.5); Red Blood Count 4.61 M/uL (4.63-6.08); White Blood Count 8.49 K/ul (4.8-10.8)
[2021-12-31 06:50] LABS: Albumin Globulin Ratio 1.1 (0.9-2); Albumin Level 3.3 gm/dl (3.4-5.0); BUN Creatinine Ratio 26.6 (10-20); Calcium 8.4 mg/dl (8.5-10.1); Creatinine Clr Calc Pharmacy 72.1 ml/min; Est GFR (African American) 57.2 ml/min; Est GFR (Non-African American) 49.4 ml/min; Globulin 2.9 gm/dl (2.5-4.0); Magnesium 2.2 mg/dl (1.7-2.4); Potassium 3.3 mmol/L (3.5-5.1); Total Protein 6.2 gm/dl (6.0-8.3)
[2021-12-31] MEDS: LACTATED RINGER'S 1,000 ML IV SCH (07:32)
[2021-12-31] MEDS: cefTRIAXone SODIUM 2,000 MG in DEXTROSE 5% 50 ML IV SCH (07:32)
[2021-12-31] MEDS: PANTOprazole 40 MG TAB PO SCH (07:32)
[2021-12-31 07:44] LABS: Appearance Urine Cloudy (Clear); Bilirubin Urine Negative (Negative); Blood Urine 3+ (Negative); Color Urine Dark Yellow; Glucose Urine UA Negative (Negative); Ketones Urine Trace (Negative); Leukocyte Esterase Urine Trace (Negative); Nitrite Urine Negative (Negative); Protein Urine 1+ (Negative); RBC Urine Automated >30 /hpf (0-4); Specific Gravity Urine 1.022 (1.000-1.030); Urobilinogen Urine Negative (Negative); pH Urine 5.5 (4.5-7.5)
--- NOTE | 2021-12-31 07:50 | CT Scan Report ---
CT tib/fib RT wo con CLINICAL HISTORY: acute RLE cellulitis TECHNIQUE: Multidetector row helical CT of the right tibia/fibula was performed without intravenous c ontrast. Coronal and sagittal reformations were obtained. Automated dose lowering techniques and/or a djustment according to patient size were utilized for this examination. Comparison: None available at the time of this dictation. FINDINGS: The osseous structures are without fracture or dislocation. The joint spaces are maintained. No joint effusion is seen. There is diffuse subcutaneous fat stranding. No gas or drainable fluid collection is seen. Incidental note is made of a fabella. An ossicle is noted in the foot which may represent a n os navicularis. IMPRESSION: Subcutaneous fat stranding compatible with cellulitis without evidence of abscess, osteomyelitis, or underlying necrotizing component. ACT 112: Negative or not required by law. Electronically signed by: Severo Cueva M.D. 12/31/2021 7:49 AM
[2021-12-31 08:04] LABS: Epithelial Cell Urine Auto 0-5 /lpf (0-5)
[2021-12-31 08:06] LABS: Bacteria Urine Automated 1+ (Negative)
[2021-12-31 08:09] LABS: Calcium Oxalate Crystals Urine Present (None Prsent)
--- NOTE | 2021-12-31 09:51 | CT Scan Report ---
ABDOMEN AND PELVIS CT WITHOUT CONTRAST CT DOSE: 1833.41 mGy.cm HISTORY: Left-sided abdominal pain. Nausea. Vomiting. N/V, abd pain and YAYA TECHNIQUE: Multiaxial CT images of the abdomen and pelvis were performed without contrast. A dose lo wering technique was utilized adhering to the principles of ALARA. COMPARISON STUDY: None. FINDINGS: Mild dependent changes seen at the lung bases. No pneumoperitoneum. No pneumatosis. No frac tures within the visualized osseous structures. Small to moderate size hiatal hernia primarily contai robert fat. Hepatic steatosis. Cholecystectomy. The unenhanced pancreas, spleen, and adrenal glands are unremarkable. No retroperitoneal lymphadenopathy. Normal caliber abdominal aorta. Multiple bilateral renal calculi. A 3.3 cm hypodense lesion within the lower pole the left kidney is incompletely tamela cters on this noncontrast study but favors a cyst. There is a 6 mm obstructing stone within the left ureteropelvic junction resulting in mild left hydronephrosis. Normal bladder. No right-sided hydronep hrosis. Small to moderate-sized upper abdominal ventral hernia containing fat. Mild fat stranding adj acent to the right external iliac lymph nodes which are slightly asymmetrically enlarged. There is al so mild subcutaneous fat stranding within the right anterior thigh with mild asymmetric right inguina l lymphadenopathy. Suboptimal evaluation for bowel pathology due to the lack of intravenous and oral contrast. However, there is no definite bowel wall thickening or obstruction. Colonic diverticulosis. No evidence for acute diverticulitis. Normal appendix. IMPRESSION: 1. A 6 mm obstructing stone within the left ureteropelvic junction resulting in mild left hydronephro sis. 2. Bilateral nephrolithiasis. 3. Hepatic steatosis. 4. Mild fat stranding and mild asymmetric lymphadenopathy within the right external iliac/inguinal re gions. This nonspecific but could represent a mild cellulitis. 5. Additional findings as described above. ACT 112: Negative or not required by law. Electronically signed by: Iggy Mccollum M.D. 12/31/2021 9:49 AM
[2021-12-31 13:07] LABS: Creatinine Urine Random 209.5 mg/dl
[2021-12-31 13:24] LABS: Appearance Urine Clear (Clear); Bacteria Urine Automated Negative (Negative); Bilirubin Urine Negative (Negative); Blood Urine 2+ (Negative); Color Urine Dark Yellow; Glucose Urine UA Negative (Negative); Ketones Urine Negative (Negative); Leukocyte Esterase Urine Negative (Negative); Nitrite Urine Negative (Negative); Protein Urine Negative (Negative); Urobilinogen Urine Negative (Negative)
[2021-12-31] MEDS ORDERED: POTASSIUM CHLORIDE CRTAB 20 MEQ TABCR PO ONE (15:05)
--- NOTE | 2021-12-31 15:05 | Hospitalist Progress Note ---
Date of Service December 31, 2021 Assessment & Plan (1) Cellulitis of right lower extremity: (2) Acute renal failure: (3) Nausea and vomiting: (4) Hypertension: (5) Dyslipidemia: (6) GERD (gastroesophageal reflux disease): Plan This is a 56-year-old male with PMH of hypertension, stasis dermatitis, fatty liver and other medical problems listed below who presents with pain and rash of right lower extremity over the past few days. RLE cellulitis RLE with erythema and petechiae, warm to touch with erythematous streaking extending up to R groin History of lichenoid LL Eruption/Favor Stasis Dermatitis, follows with derm Pain, erythema and edema noted by patient 2 days ago Afebrile, vital signs stable, non-toxic appearance. WBC normalized. ESR [address] leg- Subcutaneous fat stranding compatible with cellulitis without evidence of abscess, osteomyelitis, or underlying necrotizing component. USG arterial- no sonographic evidence of high-grade stenosis or focal vessel cutoff throughout the arteries of the right lower extremity. Plan: -Continue on current antibiotics; ceftriaxone and daptomycin. -We will continue to monitor improvement in his cellulitis. -Plan is to switch over to oral antibiotics if continues to improve. -Keep his legs elevated. -Continue to hold antihypertensive. Acute renal failure Left sided obstructive ureteral stone Cr 2.51 on presentation; down trended with IV hydration (baseline ~1) Urinalysis shows 3+ blood, 1+ bacteria and calcium oxalate stone. CT abdomen shows 6 mm obstructive stone within left ureteropelvic junction resulting in mild hydronephrosis. Bilateral nephrolithiasis. Plan; Continue on IV hydration for now. -We will consult urology given the CT findings. -Follow-up on urine culture Nausea and vomiting- resolved Sudden onset 2 days ago, has resolved except for intermittent nausea Tbili 2.2. Electrolytes wnl HTN Normotensive. Holding lisinopril and hctz 2/2 YAYA. Reasses BP in AM to resume amlodipine HLD Holding statin while receiving IV Dapto GERD Continue PPI DVT Ppx: SQ heparin Code status: FULL Dispo: Admitted to PCU Admission and Anticipated Discharge Date Admission Date: December 30, 2021 Subjective Patient seen and examined at bedside. Patient says that the pain is slightly decreased. He feels that the redness in his right leg has decreased compared to presentation. Afebrile overnight Review of Systems Review of Systems: All systems reviewed & are unremarkable except as noted in Subjective Physical Exam Physical Exam: Constitutional: WD/WN, vitals as above, NAD, sitting up in bed, pleasant, conversing easily Respiratory: normal respiratory effort, lungs clear to auscultation, no wheeze, rales, rhonchi. Normal insp/exp effort, no accessory muscle use Cardiovascular: RRR, no murmur, no edema Vessels: no JVD or carotid bruit Chest: normal inspection of chest Abdomen: normal bowel sounds, soft, nontender, no hepatosplenomegaly Musculoskeletal: no cyanosis or clubbing, extremities motor strength 5/5 Skin: erythema, swelling present in his right leg. streaking upto the groin. Neurologic: PERRL, EOMI, accommodation nl, no face palsy, no dysarthria CN's II- XI intact bilaterally and moves all extremities Psychiatric: A+Ox3, euthymic affect Lymphatic: no cervical or axillary lymphadenopathy : deferred Results & Data Results & Data ([facility]) Vital Signs (Past 12 Hours) Vital Signs Temp Pulse Resp BP Pulse Ox O2 Del Method 12/31/21 12:05 Room Air 12/31/21 07:55 36.6 C 61 19 110/66 92 Room Air 12/31/21 03:22 36.7 C 59 L 16 99/62 L 90 Room Air Diagnostic Findings Laboratory Results WBC 8.49 K/ul (4.8-10.8) 12/31/21 05:51 RBC 4.61 M/uL (4.63-6.08) L 12/31/21 05:51 Hgb 13.9 g/dl (14.0-18.0) L 12/31/21 05:51 Hct 40.5 % (40.1-51.0) 12/31/21 05:51 MCV 87.9 fL (80.0-100.0) 12/31/21 05:51 MCH 30.2 pg (25.0-34.0) 12/31/21 05:51 MCHC 34.3 g/dL (32.0-36.0) 12/31/21 05:51 RDW Std Deviation 48.0 fL (36.4-46.3) H 12/31/21 05:51 RDW Coeff of Julio Cesar 14.9 % (11.5-14.5) H 12/31/21 05:51 Plt Count 223 K/uL (130-400) 12/31/21 05:51 MPV 9.9 fL (9.4-12.4) 12/31/21 05:51 Immature Gran % (Auto) 0.7 % 12/30/21 17:10 Neut % (Auto) 85.2 % 12/30/21 17:10 Lymph % (Auto) 7.3 % 12/30/21 17:10 [place] % (Auto) 6.4 % 12/30/21 17:10 Eos % (Auto) 0.1 % 12/30/21 17:10 Baso % (Auto) 0.3 % 12/30/21 17:10 Neut # (Auto) 10.22 K/uL (1.4-6.5) H 12/30/21 17:10 Lymph # (Auto) 0.88 K/uL (1.2-3.4) L 12/30/21 17:10 [place] # (Auto) 0.77 K/uL (0.24-0.82) 12/30/21 17:10 Eos # (Auto) 0.01 K/uL (0-0.50) 12/30/21 17:10 Baso # (Auto) 0.03 K/uL (0-0.2) 12/30/21 17:10 Immature Gran # (Auto) 0.08 K/uL (0.00-0.02) H 12/30/21 17:10 ESR 36 mm/hr (0-20) H 12/30/21 19:30 PT 10.9 Seconds (9.0-12.0) 12/30/21 17:10 INR 1.0 (0.9-1.1) 12/30/21 17:10 APTT 24.1 Seconds (21.0-31.0) 12/30/21 17:10 PTT Ratio 0.9 12/30/21 17:10 Sodium 134 mmol/L (136-145) L 12/31/21 05:51 Potassium 3.3 mmol/L (3.5-5.1) L 12/31/21 05:51 Chloride 105 mmol/L (98-107) 12/31/21 05:51 Carbon Dioxide 21 mmol/L (21-32) 12/31/21 05:51 Anion Gap 8 (3-11) 12/31/21 05:51 BUN 41 mg/dl (6-23) H 12/31/21 05:51 Creatinine 1.54 mg/dl (0.6-1.4) H D 12/31/21 05:51 Est Cr Clr Drug Dosing 72.1 ml/min 12/31/21 05:51 Est GFR ( Amer) 57.2 ml/min 12/31/21 05:51 Est GFR (Non-Af Amer) 49.4 ml/min 12/31/21 05:51 BUN/Creatinine Ratio 26.6 (10-20) H 12/31/21 05:51 Glucose 108 mg/dl (70-99(Fasting)) H 12/31/21 05:51 Lactate 0.9 mmol/L (0.4-2.0) 12/30/21 19:30 Calcium 8.4 mg/dl (8.5-10.1) L 12/31/21 05:51 Magnesium 2.2 mg/dl (1.7-2.4) 12/31/21 05:51 Total Bilirubin 1.0 mg/dl (0.2-1.0) D 12/31/21 05:51 AST 21 U/L (13-39) 12/31/21 05:51 ALT 25 U/L (7-52) 12/31/21 05:51 Alkaline Phosphatase 65 U/L (34-104) 12/31/21 05:51 Troponin I High Sens 8.4 pg/ml (0-20) 12/30/21 17:10 C-Reactive Protein 9.61 mg/dl (0-0.5) H 12/30/21 17:10 B-Natriuretic Peptide 42 pg/ml (0-100) 12/30/21 19:30 Total Protein 6.2 gm/dl (6.0-8.3) 12/31/21 05:51 Albumin 3.3 gm/dl (3.4-5.0) L 12/31/21 05:51 Globulin 2.9 gm/dl (2.5-4.0) 12/31/21 05:51 Albumin/Globulin Ratio 1.1 (0.9-2) 12/31/21 05:51 Procalcitonin 5.58 ng/ml (0-0.5) H 12/30/21 19:30 TSH 4.112 uIu/ml (0.300-4.500) 12/30/21 17:10 Urine Color Dark Yellow 12/31/21 12:00 Urine Appearance Clear (Clear) 12/31/21 12:00 Urine pH 6.0 (4.5-7.5) 12/31/21 12:00 Ur Specific Chloride 1.020 (1.000-1.030) 12/31/21 12:00 Urine Protein Negative (Negative) 12/31/21 12:00 Urine Glucose (UA) Negative (Negative) 12/31/21 12:00 Urine Ketones Negative (Negative) 12/31/21 12:00 Urine Blood 2+ (Negative) H 12/31/21 12:00 Urine Nitrite Negative (Negative) 12/31/21 12:00 Urine Bilirubin Negative (Negative) 12/31/21 12:00 Urine Urobilinogen Negative (Negative) 12/31/21 12:00 Ur Leukocyte Esterase Negative (Negative) 12/31/21 12:00 Urine WBC (Auto) 1-5 /hpf (0-5) 12/31/21 12:00 Urine RBC (Auto) 10-30 /hpf (0-4) H 12/31/21 12:00 U Hyaline Cast (Auto) 1-5 /lpf (0-5) 12/31/21 12:00 U Epithel Cells (Auto) 5-10 /lpf (0-5) H 12/31/21 12:00 Urine Bacteria (Auto) Negative (Negative) 12/31/21 12:00 Calcium Oxalate Crystal Present (None Prsent) A 12/31/21 06:50 Ur Random Creatinine 209.5 mg/dl 12/31/21 06:50 Ur Random Sodium 25 mmol/L 12/31/21 06:50 Lyme Disease IgG Ab Negative (Negative) 12/30/21 19:30 Lyme Disease IgM Ab Negative (Negative) 12/30/21 19:30 SARS-CoV-2, RNA, NAAT NEGATIVE (NEGATIVE) 12/30/21 Unknown Impressions Venous Doppler Study 12/30/21 16:34 ULTRASOUND RIGHT LOWER EXTREMITY VENOUS CLINICAL HISTORY: Right calf pain. Erythema and swelling. COMPARISON STUDY: No priors. TECHNIQUE: Real-time, grayscale, and color Doppler sonography of the deep veins of the right lower extremity was performed from the inguinal crease to the calf. Compression and augmentation were utilized. FINDINGS: There is no sonographic evidence of deep venous thrombosis identified in the right lower extremity. The common femoral, superficial femoral, and popliteal veins are patent and normally compressible. The greater saphenous vein and the profunda femoris vein at the junction with the common femoral vein are clear. The visualized calf veins are patent. Benign-appearing right inguinal lymph nodes are incidentally noted and may be reactive. These show near complete fatty replacement with minimal thin cortex. IMPRESSION: There is no sonographic evidence of deep venous thrombosis identified in the right lower extremity. ACT 112: Negative or not required by law. Electronically signed by: Sony Chance M.D. 12/30/2021 6:26 PM Chest X-Ray 12/30/21 17:52 SINGLE VIEW CHEST CLINICAL HISTORY: Atypical chest pain. FINDINGS: An AP, portable, upright chest radiograph is compared to study dated 08/10/2016. The heart is enlarged noting atherosclerotic calcification of the thoracic aorta. The pulmonary vasculature is noncongested. Chronic interstitial thickening is similar to previous. There is bibasilar scarring/atelectasis. The lungs and pleural spaces are otherwise clear. No pneumothorax is seen. The skele vern structures are osteopenic. The bony thorax is grossly intact. IMPRESSION: Cardiomegaly with no acute cardiopulmonary abnormality identified. ACT 112: Negative or not required by law. Electronically signed by: Sony Chance M.D. 12/30/2021 6:[address] 12/30/21 19:41 CT tib/fib RT wo con CLINICAL HISTORY: acute RLE cellulitis TECHNIQUE: Multidetector row helical CT of the right tibia/fibula was performed without intravenous contrast. Coronal and sagittal reformations were obtained. Automated dose lowering techniques and/or adjustment according to patient size were utilized for this examination. Comparison: None available at the time of this dictation. FINDINGS: The osseous structures are without fracture or dislocation. The joint spaces are maintained. No joint effusion is seen. There is diffuse subcutaneous fat stranding. No gas or drainable fluid collection is seen. Incidental note is made of a fabella. An ossicle is noted in the foot which may represent an os navicularis. IMPRESSION: Subcutaneous fat stranding compatible with cellulitis without evidence of abscess, osteomyelitis, or underlying necrotizing component. ACT 112: Negative or not required by law. Electronically signed by: Severo Cueva M.D. 12/31/2021 7:49 AM Abdomen/Pelvis CT 12/30/21 19:[address] WITHOUT CONTRAST CT DOSE: 1833.41 mGy.cm HISTORY: Left-sided abdominal pain. Nausea. Vomiting. N/V, abd pain and YAYA TECHNIQUE: Multiaxial CT images of the abdomen and pelvis were performed without contrast. A dose lowering technique was utilized adhering to the principles of ALARA. COMPARISON STUDY: None. FINDINGS: Mild dependent changes seen at the lung bases. No pneumoperitoneum. No pneumatosis. No fractures within the visualized osseous structures. Small to moderate size hiatal hernia primarily containing fat. Hepatic steatosis. Cholecystectomy. The unenhanced pancreas, spleen, and adrenal glands are unremarkable. No retroperitoneal lymphadenopathy. Normal caliber abdominal aorta. Multiple bilateral renal calculi. A 3.3 cm hypodense lesion within the lower pole the left kidney is incompletely characters on this noncontrast study but favors a cyst. There is a 6 mm obstructing stone within the left ureteropelvic junction resulting in mild left hydronephrosis. Normal bladder. No right-sided hydronephrosis. Small to moderate-sized upper abdominal ventral hernia containing fat. Mild fat stranding adjacent to the right external iliac lymph nodes which are slightly asymmetrically enlarged. There is also mild subcutaneous fat stranding within the right anterior thigh with mild asymmetric right inguinal lymphadenopathy. Suboptimal evaluation for bowel pathology due to the lack of intravenous and oral contrast. However, there is no definite bowel wall thickening or obstruction. Colonic diverticulosis. No evidence for acute diverticulitis. Normal appendix. IMPRESSION: 1. A 6 mm obstructing stone within the left ureteropelvic junction resulting in mild left hydronephrosis. 2. Bilateral nephrolithiasis. 3. Hepatic steatosis. 4. Mild fat stranding and mild asymmetric lymphadenopathy within the right external iliac/inguinal regions. This nonspecific but could represent a mild cellulitis. 5. Additional findings as described above. ACT 112: Negative or not required by law. Electronically signed by: Iggy Mccollum M.D. 12/31/2021 9:49 AM Duplex Scan Lower Extremity Artery 12/30/21 19:42 ULTRASOUND RIGHT LOWER EXTREMITY ARTERIAL CLINICAL HISTORY: Right leg pain. COMPARISON STUDY: No priors. TECHNIQUE: Real-time grayscale and color Doppler sonography of the arteries of the right lower extremity is performed from the inguinal crease to the foot. The patient could not tolerate compressions to evaluate ankle brachial indices. FINDINGS: No significant atherosclerotic plaque is seen throughout the arteries of the right lower extremity. There are triphasic waveforms in the common femoral artery with velocities measuring up to 89 cm/s. The profunda femoris artery is patent with velocities measuring up to 68 cm/s. There are triphasic waveforms throughout the superficial femoral and popliteal arteries. Velocities in the superficial femoral artery measure up to 110 cm/s, and velocities in the popliteal artery measure up to 82 cm/s. There is three-vessel runoff to the foot. Velocities within the calf arteries measure up to 88 cm/s. Normal arterial waveforms are shown in the calf arteries. The dorsalis pedis artery is patent with velocities measuring up to 61 cm/s. IMPRESSION: 1. There is no sonographic evidence of high-grade stenosis or focal vessel cutoff throughout the arteries of the right lower extremity. 2. Ankle brachial indices could not be assessed. Dictated: 12/30/2021 8:41 PM Transcribed: 12/30/2021 8:48 PM Saige [id number] [facility] Electronically signed by: Sony Chance M.D. 12/30/2021 9:13 PM
--- NOTE | 2021-12-31 19:19 | Urology Consultation ---
Date of Consultation December 31, 2021 Assessment & Plan (1) Nephrolithiasis: The patient has been admitted on the hospitalist service, primarily treating a right lower extremity cellulitis He is receiving broad-spectrum antibiotics in the form of daptomycin and Rocephin Cultures (blood and urine) have been sent and further antibiotics can be tailored based on pending culture results The patient is noted to have acute kidney injury and patient's hydrochlorothiazide that he took an outpatient has been held and the patient is being hydrated intravenous fluids Is uncertain if patient's kidney stone noted on CAT scan is contributing to patient's acute kidney injury or if there are other injuries at play. It is nowhere the mention that his creatinine has improved since admission. Currently the patient is noted to be normotensive without tachycardia, and he is afebrile. He is also noted to have no evidence of leukocytosis and his renal function has improved. In addition the patient has already eaten his evening meal. Therefore, I do not think urgent urologic procedures are required. We w ill however make him n.p.o. after midnight and he will be reassessed in the morning to determine if cystoscopy will be required. Supervising Physician Co-Signing Physician Notes I have discussed Mr. Oviedo's case with Rio Negrete PA-C and agree with the above documentation. He is not having significant flank pain and labs are reassuring. Urology will reassess on 01/01/2022, but there is a chance that we can manage the stone as an outpatient. History of Present Illness Reason for Consultation: Nephrolithiasis Attending Physician: Pato Boyle MD History of Present Illness This is a 56-year-old male who was admitted to [facility] on 12/30/2021 secondary to a right lower extremity cellulitis. Patient notes that he recently flew to [place] last week to take his son back to college and flew back approximately 2 days ago. While in the airport the patient developed nausea and vomiting x3 episodes. At that time he admitted to some right-sided abdominal pain which has since resolved. In addition the patient developed some right lower extremity pain and he subsequently noticed some redness and swelling the day of admission. He denies any cuts, scrapes, insect, or tick bites to the affected leg. He also denies any traumatic injuries to the affected leg. He reports he is not diabetic. He denies any fevers but did report occasional chills. He denies any cough. He denies any left flank pain he also denies any right flank pain. He denies any left-sided abdominal pain. He denies any dysuria or urinary frequency but does admit to some intermittent hematuria. He does note that since arrival to the hospital he has been able to urinate without difficulty. Since admission to the hospital patient has had labs and imaging which independent reviewed. He did have a venous Doppler study of the right lower extremity that showed no evidence of DVT chest x-ray showed no evidence of pneumonia. A CT scan of the right lower extremity showed no evidence of abscess, osteomyelitis, or necrotizing infectious process. He had arterial duplex of the right lower extremity that showed no evidence of high-grade sten otic lesion in the right lower extremity. Finally, the patient had a CT scan of the abdomen pelvis. The patient was noted to have a 6 mm kidney stone at the left ureteral pelvic junction resulting in mild left hydronephrosis. Multiple additional bilateral renal calculi were noted that were nonobstructive in nature. Most recent labs were from today which include a CBC were white blood cell count and hematocrit were normal. The platelet count was also noted to be normal. Chemistry profile showed sodium and potassium are 134 and 3.3. BUN and creatinine were 41 and 1.5. It should be noted that time of admission 1 day ago patient's white blood cell count was slightly elevated at 11.9. Also on day of admission the patient's creatinine was 2.5. Review of hospitalist notes indicate that the patient's baseline creatinine usually runs around 1.0. Since admission the patient has had blood and urine cultures sent which are pending. He has been initiated on broad-spectrum antibiotics in the form of Rocephin and daptomycin, and has been resuscitated with intravenous fluids. Allergies Allergy/AdvReac Type Severity Reaction Status Date / Time No Known Allergies Allergy Unverified 12/06/09 02:50 Home Medications Medication Instructions Recorded Confirmed Type amlodipine 5 mg tablet 5 mg PO HS 12/30/21 12/30/21 History atorvastatin 20 mg tablet 20 mg PO HS 12/30/21 12/30/21 History hydrochlorothiazide 12.5 mg capsule 12.5 mg PO DAILY 12/30/21 12/30/21 History pantoprazole 40 mg tablet,delayed 40 mg PO DAILY 12/30/21 12/30/21 History release Patient History Medical History Abnormal liver function tests Calculus of kidney Dyslipidemia GERD (gastroesophageal reflux disease) Hypertension Stasis dermatitis of both legs Surgical History H/O hernia repair Hx of cholecystectomy Family History Other Cancer Heart disease Social History Smoking Status: Never smoker Hx Alcohol Use: No Hx Substance Use: No Preferred Language: Pashto Communication Ability: Effective Delivery Helper Required: No Beliefs That Will Affect Care: None Current Living Situation: Spouse Other Information That Helps Us Care for You: No Feels Safe at Home: Yes Safety Concerns: Feels Safe At This Time Assistive Devices: None Review of Systems Constitutional: + chills; no fever Eyes: + corrective lenses Ear, Nose, Mouth, Throat: no ear pain Respiratory: no cough and no dyspnea Cardiovascular: no chest pain Gastrointestinal: + abdominal pain (Resolved), + nausea (Resolved) and + vomiting (Resolved) Genitourinary: + as per Subjective / HPI and + hematuria; no dysuria or no flank pain Musculoskeletal: no back pain Integumentary: no rash Neurologic: no localized weakness Physical Exam Constitutional: WD/WN, vitals as above Eyes: no conjunctival abnormality ENMT: Ears: no hearing impairment and no external ear abnormality Mouth: no oropharynx abnormality Neck: trachea midline Respiratory: normal respiratory effort; no respiratory distress and no labored breathing Cardiovascular: Rate/Rhythm: regular rate and regular rhythm Gastrointestinal (Abdomen): Soft, nondistended, nonrigid, and nontender to palpation. There is no rebound tenderness or guarding. Musculoskeletal: Patient is noted to have marked swelling of the right lower extremity with erythema circumferential around the right lower extremity from approximately 1 inch below the knee to the foot. Skin: no rashes Neurologic: moves all extremities Psychiatric: A+Ox3, euthymic affect Genitourinary: no CVA tenderness (No CVA tenderness noted bilaterally to percussion) Results & Data ([facility]) Vital Signs (Past 12 Hours) Vital Signs Temp Pulse Resp BP Pulse Ox O2 Del Method 12/31/21 16:02 36.7 C 66 19 118/75 96 Room Air 12/31/21 12:05 Room Air 12/31/21 07:55 36.6 C 61 19 110/66 92 Room Air PG Care Time/CCT Total # of Minutes Spent Total Time Spent with Patient: Total time spent is greater than 50% in coordination of care (as documented) at patient's floor/unit and/or counseling patient: Coding Level of Care Code 48518 Inpt Consult Level 5 Diagnoses Nephrolithiasis N20.0
[2021-12-31] MEDS: DAPTOmycin 400 MG in SYRINGE 0 ML IV SCH (20:13)
[2021-12-31] MEDS ORDERED: amLODIPine BESYLATE 5 MG TAB PO SCH (21:00)
[2021-12-31 21:54] LABS: A calco-baum cmplx NotReported Not Detected (NotDetected); Bact fragilis Not Reported Not Detected (NotDetected); C auris Not Reported Not Detected (NotDetected); Calbicans Not Reported Not Detected (NotDetected); Candida glabrata Not Reported Not Detected (NotDetected); Candida krusei Not Reported Not Detected (NotDetected); Cneoformans/gatti Not Reported Not Detected (NotDetected); Cparapsilosis Not Reported Not Detected (NotDetected); Ctropicalis Not Reported Not Detected (NotDetected); E cloacae compx Not Reported Not Detected (NotDetected); Efaecalis Not Reported Not Detected (NotDetected); Efaecium Not Reported Not Detected (NotDetected); Enterobacterales Not Reported Not Detected (NotDetected); Escherichia coli Not Reported Not Detected (NotDetected); H influenzae Not Reported Not Detected (NotDetected); K aerogenes Not Reported Not Detected (NotDetected); Koxytoca Not Reported Not Detected (NotDetected); Kpneumoniae grp Not Reported Not Detected (NotDetected); Lmonocyt Not Reported Not Detected (NotDetected); N meningitidis Not Reported Not Detected (NotDetected); P aeruginosa Not Reported Not Detected (NotDetected); Proteus spp Not Reported Not Detected (NotDetected); Salmonella spp Not Reported Not Detected (NotDetected); Smarcescens Not Reported Not Detected (NotDetected); Staph lugdunensis Not Reported Not Detected (NotDetected); Staphaureus Not Reported Not Detected (NotDetected); Staphepi Not Reported Not Detected (NotDetected); Stenmaltophilia Not Reported Not Detected (NotDetected); Strep agal(GrpB) Not Reported Not Detected (NotDetected); Strep pneum Not Reported Not Detected (NotDetected); Strep pyog (GrpA) Not Reported Not Detected (NotDetected); Strep spp Not Reported DETECTED (NotDetected); Streptococcus spp DETECTED (NotDetected)
--- NOTE | 2021-12-31 22:12 | Electrocardiogram Report ---
Test Reason : Blood Pressure : / mmHG Vent. Rate : 083 BPM Atrial Rate : 083 BPM P-R Int : 170 ms QRS Dur : 112 ms QT Int : 378 ms P-R-T Axes : 027 073 012 degrees QTc Int : 444 ms Normal sinus rhythm Normal ECG When compared with ECG of 10-AUG-2016 20:22, No significant change was found Confirmed by Hira Lynch ([id number]) on 12/31/2021 10:12:12 PM Referred By: REFERRED SELF Confirmed By:Hira Lynch
[2021-12-31 22:14] LABS: Staph spp. Not Reported DETECTED (NotDetected); Staphylococcus spp. DETECTED (NotDetected)
[2022-01-01] MEDS: HEPARIN SOD 5,000 UNIT/0.5 ML VIAL SQ SCH (05:36)
[2022-01-01 07:31] LABS: Hematocrit (blood only) 41.6 % (40.1-51.0); Hemoglobin 14.1 g/dl (14.0-18.0); Mean Corpuscular Hemoglobin 30.1 pg (25.0-34.0); Mean Corpuscular Hgb Conc 33.9 g/dL (32.0-36.0); Mean Corpuscular Volume 88.7 fL (80.0-100.0); Mean Platelet Volume 9.9 fL (9.4-12.4); Platelet Count 252 K/uL (130-400); RDW Coefficient of Variation 14.9 % (11.5-14.5); RDW Standard Deviation 48.6 fL (36.4-46.3); Red Blood Count 4.69 M/uL (4.63-6.08); White Blood Count 7.74 K/ul (4.8-10.8)
[2022-01-01 07:59] LABS: BUN Creatinine Ratio 25.3 (10-20); Calcium 8.7 mg/dl (8.5-10.1); Creatinine Clr Calc Pharmacy 138.4 ml/min; Est GFR (African American) 113.2 ml/min; Est GFR (Non-African American) 97.7 ml/min; Potassium 3.8 mmol/L (3.5-5.1)
--- NOTE | 2022-01-01 08:07 | Urology Progress Note ---
Date of Service January 01, 2022 Assessment & Plan (1) Calculus of proximal left ureter: Plan: - Follow-up of 6 mm L UPJ stone. - Pt afebrile, lab work reviewed - creatinine normalized to 0.83 today, no leukocytosis. - UC&S pending - follow culture. Currently on IV Ceftriaxone and Daptomycin for RLE cellulitis. - Discussed options for stone management including observation/trial of passage vs surgical intervention inpatient vs outpatient. - He remains asymptomatic from stone standpoint, lab work reassuring. - We discussed it would be reasonable to manage this stone outpatient with our service presuming his creatinine was improving. - After discussion, he elected to address his stone as an outpatient. - Continue hydration, supportive care, antibiotics, and management per primary service. - Will arrange follow-up with our service outpatient to discuss definitive stone management. - will sign off. Please consult our service urgently if patient develops fever >101F, intractable pain or nausea, as this will necessitate urgent surgical intervention. Admission and Anticipated Discharge Date Admission Date: December 30, 2021 Supervising Physician Co-Signing Physician Notes I have discussed Mr. Oviedo's case with BLANCA Magallanes and agree with the above documentation. Currently asymptomatic from his stone and actively managing cellulitis with antibiotics. We will plan to see him as an outpatient to address the stone. If he develops flank pain, worsening renal function or fevers/chills, would reconsider stent placement. Urology will sign off for now. Please contact us with any questions or concerns. Subjective Patient seen at bedside this AM. He is awake, alert and standing up inside his room. No acute issues overnight. No subjective fevers or chills. No flank pain or abdominal pain. He notes an occasional transient discomfort in bilateral groin, but not currently. He is voiding without difficulty. No dysuria or hematuria. No nausea or vomiting. He reports improvement in pain and swelling of his right lower extremity. Hx of prior stones - passed spontaneously, no prior stone surgeries. Review of Systems Constitutional: as per Subjective / HPI Cardiovascular: as per Subjective / HPI Gastrointestinal: as per Subjective / HPI Genitourinary: + as per Subjective / HPI Musculoskeletal: as per Subjective / HPI Physical Exam Constitutional: well developed and well nourished; no acute distress and not ill appearing Respiratory: normal respiratory effort; no respiratory distress and no labored breathing Cardiovascular: Extremities: + edema (right lower extremity edema) Gastrointestinal (Abdomen): Inspection/Auscultation: abdomen normal to inspection; abdomen not distended Percussion/Palpation: abdomen soft; abdomen nontender and no guarding Musculoskeletal: Head/Neck/Chest: normocephalic and head atraumatic Skin: RLE erythema Neurologic: moves all extremities and awake Psychiatric: Orientation: alert and oriented x 3 Genitourinary: no CVA tenderness Results & Data ([facility]) Vital Signs (Past 12 Hours) Vital Signs Temp Pulse Pulse Resp BP Pulse Ox Pulse Ox 01/01/22 03:53 36.9 C 58 L 16 129/83 92 01/01/22 00:15 54 L 12/31/21 23:00 37.2 C 81 20 104/69 92 12/31/21 21:37 95 O2 Del Method 01/01/22 03:53 Room Air 01/01/22 00:15 12/31/21 23:00 Room Air 12/31/21 21:37 PG Care Time/CCT Total # of Minutes Spent Total Time Spent with Patient: Total time spent is greater than 50% in coordination of care (as documented) at patient's floor/unit and/or counseling patient: Coding Level of Care Code 38407 Subseq Hosp Care Lvl 2 Diagnoses Calculus of proximal left ureter N20.1
[2022-01-01] MEDS: cefTRIAXone SODIUM 2,000 MG in DEXTROSE 5% 50 ML IV SCH (09:37)
[2022-01-01] MEDS: LACTATED RINGER'S 1,000 ML IV SCH (09:37)
[2022-01-01] MEDS: PANTOprazole 40 MG TAB PO SCH (09:38)
--- NOTE | 2022-01-01 16:02 | Discharge Summary ---
Date of Service January 01, 2022 Admission HPI Per Admitting Provider This is a 56-year-old male with PMH of hypertension, stasis dermatitis, fatty liver and other medical problems listed below who presents with pain and rash of right lower extremity over the past few days. Patient flew to [place] last Wednesday to take son to college and flew back 2 days ago. In the airport coming back, patient developed nausea and vomiting x 3 episodes that resolved by the following day. Associated R sided abdominal pain that has since resolved. Still feels nauseated but improved. On flight home, patient developed pain in RLE described as sharp like pins and needles that is worse when bearing weight. Is able to ambulate with some pain. First noticed redness and swelling yesterday. Pain continues as well. Denies any recent URI or cold symptoms in the past month. Denies fever or chills. No headache, congestion, chest pain, SOB, dysuria, diarrhea or constipation. No recent insect bites or ticks that he is aware of. Did not do any hiking out in [place]. At PCP appointment 2 weeks ago discussed lower extremity dermatitis that is itchy and ongoing. 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 Previously prescribed topical steroids and has not been using them recently. No recent antibiotics or new medications. Admission Exam Per Admitting Provider NAD, obese pt HEENT: normal oral exam, no ulcer Lungs: CTA, no crackles or wheezing Cardiac: Normal S1/S2, no murmur Abd: obese abd, NT, soft MSK: R LE: diffuse petechiae with non-blanching erythema (circumferential), with severe TTP, superficial erythema on the medial thigh. Good dorsalis pedis and posterior tibial pulse -Trace pitting edema of the L LE Psych: AAOx3, normal affect Principal Diagnosis (1) Cellulitis of right lower extremity: (2) Acute renal failure: 3) Left sided obstructive ureteral stone (4) Nausea and vomiting: (5) Hypertension: (6) Dyslipidemia: (7) GERD (gastroesophageal reflux disease): Discharge Exam Constitutional: WD/WN, vitals as above, NAD, sitting up in bed, pleasant, conversing easily Respiratory: normal respiratory effort, lungs clear to auscultation, no wheeze, rales, rhonchi. Normal insp/exp effort, no accessory muscle use Cardiovascular: RRR, no murmur, no edema Vessels: no JVD or carotid bruit Chest: normal inspection of chest Abdomen: normal bowel sounds, soft, nontender, no hepatosplenomegaly Musculoskeletal: no cyanosis or clubbing, extremities motor strength 5/5 Skin: erythema, swelling present in his right leg. streaking upto the groin. Neurologic: PERRL, EOMI, accommodation nl, no face palsy, no dysarthria CN's II- XI intact bilaterally and moves all extremities Psychiatric: A+Ox3, euthymic affect Lymphatic: no cervical or axillary lymphadenopathy : deferred Discharge Data Allergies Allergy/AdvReac Type Severity Reaction Status Date / Time No Known Allergies Allergy Unverified 12/06/09 02:50 Consultations 12/30/21 18:44 ED Decision to Admit Stat 12/31/21 15:03 Consult Urology Routine Ordered Studies 12/30/21 16:34 US venous doppler LE RT Stat 12/30/21 19:41 CT leg [CT tib/fib RT wo con] Urgent 12/30/21 19:42 CT abd pelvis wo con Urgent US arterial duplex LE RT Stat Hospital Course (1) Calculus of proximal left ureter: (2) Nephrolithiasis: (3) Acute renal failure: (4) Cellulitis of right lower extremity: (5) GERD (gastroesophageal reflux disease): (6) Hypertension: Plan Patient is a 56-year-old male with past medical history of hypertension, status dermatitis presented to the ED with complaint of pain, swelling and erythema in his right foot streaking up to his groin. Patient underwent CT leg which was consistent with cellulitis without any evidence of abscess, osteomyelitis or underlying necrotizing component. He also underwent venous and arterial duplex which were negative for DVT and any high-grade stenosis respectively. He was found to have elevated creatinine consistent with acute kidney injury. Patient underwent CT abdomen; was found to have 6 mm obstructing stone within left ureteropelvic junction resulting in mild hydronephrosis. Patient was admitted to general medical floor and was started on ceftriaxone and daptomycin for cellulitis. He was also started on IV hydration for his YAYA. During the course of the hospitalization, patient's erythema, swelling decreased. His creatinine down trended to the baseline. Urology was consulted for ureteric stone; was recommended for outpatient follow-up as patient was asymptomatic and urine culture was unremarkable. Patient's blood culture ( one of the 2 bottles) was positive for alpha streptococci; likely contaminant. Patient was discharged on Augmentin 500 3 times daily and doxycycline twice daily. Patient was instructed to have a close follow-up with his PCP. He was also instructed to follow-up with urology as well. Total Time Total Time Spent Total Time Spent (In Minutes): 35 Total Time Includes: Examination of the Patient, Discharge Planning, Medication Reconciliation, Communication With Other Providers and Other Discharge Plan Discharge Items Patient Disposition: Home - Self-Care Reason For Visit: RLE CELLULITIS, ARF, N/V Discharge Diagnosis: (1) Cellulitis of right lower extremity: (2) Acute renal failure: (3) Nausea and vomiting: (4) Hypertension: (5) Dyslipidemia: (6) GERD (gastroesophageal reflux disease) Condition on Discharge: Good Activity: As commented below Activity Comment: Please limit your activity on your right leg. Elevate the leg. Non-emergency contact: Primary Care Provider Call non-emergency contact if: you have any medication questions, your symptoms worsen, your wound has increased redness, your wound has increased drainage and your wound pain has increased Follow-up/Referrals: Angelo Gomes PA-C [Primary Care Provider] - (Date & Time 01/07/2022 8:20 AM Provider Angelo Gomes PA-C Department [facility] ) Diet: Regular Addtl Attending Provider Instructions: For your cellulitis; we are prescribing you Augmentin 1 tablet twice daily and doxycycline 1 tablet twice daily for next 7 days. Please follow-up with your primary care doctor as soon as possible. Please follow-up with urology as outpatient for management of left ureteric stone. Please contact your physician or come to the ED if there is increasing pain, fever, chills or progression of the redness and swelling. Pending Studies at Discharge: No Stand-Alone Forms: [employer] [place], Work/School Release, Smoking Cessation Medications and DC Order Prescriptions: New doxycycline hyclate 100 mg tablet 100 mg PO BID 7 Days Qty: 14 0RF mupirocin 2 % ointment 1 applic topical BID Qty: 15 0RF amoxicillin-pot clavulanate [Augmentin] 500-125 mg tablet 1 tab PO Q8H 7 Days Qty: 21 0RF Continued atorvastatin 20 mg tablet 20 mg PO HS amlodipine 5 mg tablet 5 mg PO HS pantoprazole 40 mg tablet,delayed release (DR/EC) 40 mg PO DAILY hydrochlorothiazide 12.5 mg capsule 12.5 mg PO DAILY Discharge Orders: Discharge Order (Routine); Ordered 01/01/22 Ordered By: Pato Boyle Admission Data Admit Date/Time: 12/30/21 20:50 Attending Provider: Pato Boyle Admit Provider: Hector Davis Primary Care Provider: Angelo Gomes Other Providers: Hector Davis ; Jesse Pena Other Interventions: Discharge Summary Assessment (RN) Last Done: 01/01/22 12:48
== END 2022-01-01 13:34 | disposition home or self-care (01) | DRG 603 ==
LOC: ED 16:17 → SUATTDRO 20:50 → 4W 20:50